=== PATIENT | male | born 1975 | race African-American/Black ===

== ENCOUNTER 2017-09-23 11:41 | Emergency (ER) | payer BC ==
--- NOTE | 2017-09-23 13:55 | ER ---
Nurse's Notes [facility] Name: Chevy Bae Age: 41 yrs Sex: Male : 1975 Arrival Date: 09/23/2017 Time: 11:46 Bed 17 Private MD: Out, [facility] Diagnosis: Cutaneous abscess of neck Presentation: 09/23 11:59 Presenting complaint: Patient states: "I have this bump under my chin, its been there aj1 for 3 weeks. My girlfriend has tried to pop and it I've took antibiotics but it just wont go away." Denies fever. Transition of care: patient was not received from another setting of care. Onset of symptoms was August 26, 2017. Risk Assessment: Do you want to hurt yourself or someone else? Patient reports no desire to harm self or others. Initial Sepsis Screen: Does the patient meet any 2 criteria? No. Patient's initial sepsis screen is negative. Does the patient have a suspected source of infection? No. Patient's initial sepsis screen is negative. Care prior to arrival: None. 11:59 Method Of Arrival: Ambulatory [facility] 11:59 Acuity: BENOIT 4 aj1 Triage Assessment: 12:01 General: Appears in no apparent distress. comfortable, Behavior is calm, cooperative, aj1 appropriate for age. Pain: Denies pain. Historical: - Allergies: 12:01 No Known Allergies; aj1 - Home Meds: 12:01 None [Active]; aj1 - PMHx: 12:01 None; aj1 - PSHx: 12:01 None; aj1 - Immunization history:: Flu vaccine is not up to date. - Social history:: Smoking status: Patient uses tobacco products, 8 cigarettes per day. - Ebola Screening: : Patient denies travel to an Ebola-affected area in the 21 days before illness onset. Screenin:00 Abuse screen: Denies threats or abuse. Nutritional screening: No deficits noted. em Tuberculosis screening: No symptoms or risk factors identified. Fall Risk None identified. Assessment: 12:25 General: Appears in no apparent distress. comfortable, well groomed, well developed, em well nourished, Behavior is calm, cooperative, Denies fever, chills. Pain: Denies pain. Neuro: Level of Consciousness is awake, alert, obeys commands, confused, Oriented to person, place, time, situation. Cardiovascular: Capillary refill < 3 seconds Patient's skin is warm and dry. Respiratory: Airway is patent Respiratory effort is even, unlabored, Respiratory pattern is regular, symmetrical. GI: Abdomen is flat. : No signs and/or symptoms were reported regarding the genitourinary system. EENT: Oral mucosa is moist. Throat is clear is pink Denies difficulty swallowing. Derm: Skin is intact, Skin is pink, warm \\T\\ dry. Abscess located on face and submental area. Musculoskeletal: Range of motion: intact in all extremities. 12:31 General: The previous assessment is accurate, call light remains within reach. . ss 13:00 Reassessment: Patient appears in no apparent distress at this time. Ultrasound at em bedside. 13:30 Reassessment: Patient appears in no apparent distress at this time. Patient and/or em family updated on plan of care and expected duration. Pain level reassessed. Patient is alert, oriented x 3, equal unlabored respirations, skin warm/dry/pink. 14:26 Reassessment: Patient appears in no apparent distress at this time. Patient and/or em family updated on plan of care and expected duration. Pain level reassessed. Patient is alert, oriented x 3, equal unlabored respirations, skin warm/dry/pink. Patient denies pain at this time. Vital Signs: 12:01 BP 118 / 86; Pulse 65; Resp 18; Temp 98.6(O); Pulse Ox 100% on R/A; Weight 96.16 kg aj1 (R); Height 5 ft. 10 in. (177.80 cm) (R); Pain 0/10; 12:30 BP 124 / 87; Pulse 76; Resp 18; Pulse Ox 99% on R/A; Pain 0/10; em 13:30 BP 125 / 86; Pulse 71; Resp 16; Pulse Ox 98% on R/A; em 14:23 Pulse 57; Resp 16; Pulse Ox 99% on R/A; Pain 0/10; em 12:01 Body Mass Index 30.42 (96.16 kg, 177.80 cm) aj1 ED Course: 11:46 Patient arrived in ED. sb2 11:46 Out, [facility] is Private Physician. sb2 12:01 Triage completed. aj1 12:01 Arm band placed on Patient placed in an exam room. aj1 12:04 [facility] snw 12:04 Juan Carlos Avila MD is Attending Physician. snw 12:04 Ghassan Haley LVN is Primary Nurse. em 12:58 Ultrasound completed. Patient tolerated well. sg3 13:00 Patient has correct armband on for positive identification. Bed in low position. Call em light in reach. 13:18 US Extrmty Nonvasular Limited In Process Unspecified. EDMS 13:46 Assist provider with I \\T\\ D: of an abscess on anterior of neck Set up I\\T\\D tray. em Performed by Ese COLLIER Dressing with Neosporin and 4X4s, Patient tolerated well. 14:25 Patient did not have IV access during this emergency room visit. em Administered Medications: 14:17 Drug: [place] 5 mg-325 mg 1 tabs Route: PO; em 14:21 Follow up: Response: Medication administered at discharge. em 14:17 Drug: Clindamycin 300 mg Route: PO; em 14:22 Follow up: Response: Medication administered at discharge. em Outcome: 13:54 Discharge ordered by . snw 14:25 Discharged to home ambulatory. em 14:25 Condition: good 14:25 Discharge instructions given to patient, Instructed on discharge instructions, follow up and referral plans. medication usage, Demonstrated understanding of instructions, follow-up care, medications, Prescriptions given X 2. 14:26 Patient left the ED. em Signatures: Dispatcher [employer] EDOR Kathleen Small RN RN aj1 Ese Centeno FNP-C POLYMERIZATION SUPERVISOR-Csnw Ghassan Haley LVN LVN em Monse Lewis RN RN ss Godinez, Sarah sg3 Maliha Stokes sb2 Corrections: (The following items were deleted from the chart) 13:17 13:13 Ultrasound completed. Patient tolerated well. sg3 sg3
--- NOTE | 2017-09-23 13:55 | EDPHYS ---
Physician Documentation [facility] Name: Chevy Bae Age: 41 yrs Sex: Male : 1975 Arrival Date: 09/23/2017 Time: 11:46 Bed 17 Private MD: Out, [facility] ED Physician Juan Carlos Avila HPI: 09/23 12:54 This 41 yrs old Black Male presents to ER via Ambulatory with complaints of KNOT ON snw NECK. 12:54 Onset: The symptoms/episode began/occurred gradually, 3 week(s) ago, and became snw persistent. Associated signs and symptoms: Pertinent positives: The patient does not have any pertinent positive signs or symptoms associated with pediatric illness. Modifying factors: The patient symptoms are alleviated by. The patient has not experienced similar symptoms in the past. The patient has not recently seen a physician. girlfriend tried to remove hair from area of irritation, squeezed area mildly, no d/c. Pt took partial (left over) course of antibiotics without improvement. Historical: - Allergies: 12:01 No Known Allergies; aj1 - Home Meds: 12:01 None [Active]; aj1 - PMHx: 12:01 None; aj1 - PSHx: 12:01 None; aj1 - Immunization history:: Flu vaccine is not up to date. - Social history:: Smoking status: Patient uses tobacco products, 8 cigarettes per day. - Ebola Screening: : Patient denies travel to an Ebola-affected area in the 21 days before illness onset. ROS: 12:53 Constitutional: Negative for fever, chills, and weight loss, Eyes: Negative for injury, snw pain, redness, and discharge, ENT: Negative for injury, pain, and discharge, Cardiovascular: Negative for chest pain, palpitations, and edema, Respiratory: Negative for shortness of breath, cough, wheezing, and pleuritic chest pain, Abdomen/GI: Negative for abdominal pain, nausea, vomiting, diarrhea, and constipation, Back: Negative for injury and pain, : Negative for injury, bleeding, discharge, and swelling, MS/Extremity: Negative for injury and deformity, Skin: Negative for injury, rash, and discoloration, Neuro: Negative for headache, weakness, numbness, tingling, and seizure. 12:53 Neck: Positive for mass, of the left anterior aspect of neck. Exam: 12:53 Constitutional: This is a well developed, well nourished patient who is awake, alert, snw and in no acute distress. Head/Face: Normocephalic, atraumatic. Eyes: Pupils equal round and reactive to light, extra-ocular motions intact. Lids and lashes normal. Conjunctiva and sclera are non-icteric and not injected. Cornea within normal limits. Periorbital areas with no swelling, redness, or edema. ENT: Nares patent. No nasal discharge, no septal abnormalities noted. Tympanic membranes are normal and external auditory canals are clear. Oropharynx with no redness, swelling, or masses, exudates, or evidence of obstruction, uvula midline. Mucous membranes moist. Chest/axilla: Normal chest wall appearance and motion. Nontender with no deformity. No lesions are appreciated. Cardiovascular: Regular rate and rhythm with a normal S1 and S2. No gallops, murmurs, or rubs. Normal PMI, no JVD. No pulse deficits. Respiratory: Lungs have equal breath sounds bilaterally, clear to auscultation and percussion. No rales, rhonchi or wheezes noted. No increased work of breathing, no retractions or nasal flaring. Abdomen/GI: Soft, non-tender, with normal bowel sounds. No distension or tympany. No guarding or rebound. No evidence of tenderness throughout. Back: No spinal tenderness. No costovertebral tenderness. Full range of motion. Skin: Warm, dry with normal turgor. Normal color with no rashes, no lesions, and no evidence of cellulitis. MS/ Extremity: Pulses equal, no cyanosis. Neurovascular intact. Full, normal range of motion. Neuro: Awake and alert, GCS 15, oriented to person, place, time, and situation. Cranial nerves II-XII grossly intact. Motor strength 5/5 in all extremities. Sensory grossly intact. Cerebellar exam normal. Normal gait. 12:53 Neck: External neck: mass, that is moderate-sized, of the left anterior aspect of neck. Vital Signs: 12:01 BP 118 / 86; Pulse 65; Resp 18; Temp 98.6(O); Pulse Ox 100% on R/A; Weight 96.16 kg aj1 (R); Height 5 ft. 10 in. (177.80 cm) (R); Pain 0/10; 12:30 BP 124 / 87; Pulse 76; Resp 18; Pulse Ox 99% on R/A; Pain 0/10; em 13:30 BP 125 / 86; Pulse 71; Resp 16; Pulse Ox 98% on R/A; em 14:23 Pulse 57; Resp 16; Pulse Ox 99% on R/A; Pain 0/10; em 12:01 Body Mass Index 30.42 (96.16 kg, 177.80 cm) aj1 Procedures: 13:52 I \T\ D: Incision and drainage was performed for an abscess of the left anterior aspect snw of neck Prepped with hibiclens. Anesthetized with 5 ml's 1% Lidocaine. Incised with #11 blade. Drained moderate amount purulent fluid. serosanguinous fluid. Loculations removed. Dressing: the patient tolerated the procedure well. MDM: 12:06 Patient medically screened. snw 13:52 Data reviewed: vital signs, nurses notes. Data interpreted: Pulse oximetry: on room air snw is 100 %. Interpretation: normal. Counseling: I had a detailed discussion with the patient and/or guardian regarding: the historical points, exam findings, and any diagnostic results supporting the discharge/admit diagnosis, the presence of at least one elevated blood pressure reading (>120/80) during this emergency department visit, radiology results, the need for outpatient follow up, to return to the emergency department if symptoms worsen or persist or if there are any questions or concerns that arise at home. Special discussion: I have referred the patient to see his PCP for further evaluation of high blood pressure. I discussed in detail with the patient the higher chance of wound infection based on his presenting history. Based on the history and exam findings, there is no indication for further emergent testing or inpatient evaluation. I discussed with the patient/guardian the need to see the primary care provider for further evaluation of the symptoms. 09/23 12:16 Order name: US Warren Natalie Limited; Complete Time: 14:22 snw Administered Medications: 14:17 Drug: [place] 5 mg-325 mg 1 tabs Route: PO; em 14:21 Follow up: Response: Medication administered at discharge. em 14:17 Drug: Clindamycin 300 mg Route: PO; em 14:22 Follow up: Response: Medication administered at discharge. em Disposition: 14:35 Co-signature as Attending Physician, Juan Carlos Avila MD. rn Disposition: 09/23/17 13:54 Discharged to Home. Impression: Cutaneous abscess of neck. - Condition is Stable. - Discharge Instructions: Abscess, Incision and Drainage, Heat Therapy. - Prescriptions for Clindamycin HCl 300 mg Oral Capsule - take 1 capsule by ORAL route every 6 hours for 10 days; 40 capsule. Diclofenac Sodium 75 mg Oral Tablet Sustained Release - take 1 tablet by ORAL route 2 times per day; 30 tablet. - Medication Reconciliation Form, Thank You Letter, Antibiotic Education, Prescription Opioid Use, Work release form form. - Follow up: Private Physician; When: 2 - 3 days; Reason: Recheck today's complaints, Continuance of care, Re-evaluation by your physician. Follow up: Emergency Department; When: As needed; Reason: Worsening of condition. Signatures: Dispatcher [employer] Kathleen Meléndez RN RN aj1 Ese Centeno, ORDER CALLER-C ORDER CALLER-Csnw Ghassan Haley, AMERICAN SIGN LANGUAGE TEACHER AMERICAN SIGN LANGUAGE TEACHER em Juan Carlos Avila MD MD journalism teacher: (The following items were deleted from the chart) 14:26 13:54 09/23/2017 13:54 Discharged to Home. Impression: Cutaneous abscess of neck. em Condition is Stable. Forms are Medication Reconciliation Form, Thank You Letter, Antibiotic Education, Prescription Opioid Use. Follow up: Private Physician; When: 2 - 3 days; Reason: Recheck today's complaints, Continuance of care, Re-evaluation by your physician. Follow up: Emergency Department; When: As needed; Reason: Worsening of condition. snw
--- NOTE | 2017-09-23 13:59 | RAD REPORT ---
EXAM DESCRIPTION: US - Extremity Nonvascular Limited - 09/23/2017 1:18 pm CLINICAL HISTORY: Submandibular mass COMPARISON: None. TECHNIQUE: Sonographic evaluation of the soft tissues midline and left submandibular region performe d. FINDINGS: The clinically palpable mass represents a 2 centimeter oval heterogeneous hypoechoic mass. Doppler evaluation shows peripheral vascularity but no central vascularity. The masses in the subcut aneous fatty tissues. Deep communication is not identifiable. There are several small adjacent lymph nodes. No sinus tract to the skin surface. The mass may be a simple subcutaneous abscess at the patient has history of wound or injury to the so ft tissues in this region. Mass is relatively more superior than would be expected for a thyroglossal duct cyst. Secondary infection or inflammation of a ranula also in the differential consideration. D ermoid/ teratoma etiology would be uncommon but part of a differential consideration. No thickened ri m or rind identifiable. IMPRESSION: Approximately 2 centimeter oval hypoechoic mass with adjacent reactive lymph nodes. This is left of midline submandibular region. Large necrotic lymph node or abscess would be primary considerations if the patient has evidence for cellulitis or a known wound in this region. Additional differential considerations are detailed in the body of the report.
[2017-09-23] MEDS ORDERED: HYDROCODONE/APAP 5/325 MG TAB ONE (14:14)
[2017-09-23] MEDS ORDERED: CLINDAMYCIN HCL 150 MG CAP ONE (14:14)
== END 2017-09-23 14:26 | disposition home or self-care (01) ==
LOC: ER 11:41
PROC: 0J950ZZ Drainage of Left Neck Subcutaneous Tissue and Fascia, Open Approach (ICD-10-PCS; principal; 2017-09-23)
DX: L02.11 Cutaneous abscess of neck (principal); F17.210 Nicotine dependence, cigarettes, uncomplicated
CPT/HCPCS: 76882; 99284